=== PATIENT | male | born 1955 | race Caucasian/White ===

== ENCOUNTER 2025-04-18 12:31 | Day surgery (SDC) | payer MEDICARE, BC ==
[2025-04-14 13:29] LABS: MEAN PLATELET VOLUME 7.8 FL (7.4-10.4); RED CELL DISTRIBUTION WIDTH 14.8 % (11.5-14.5)
[2025-04-14 13:43] LABS: APTT 29 SECONDS (22-32); CHOL/HDL RATIO 4.4 (0.00-4.99); CREATININE 1.54 MG/DL (0.60-1.10); INR 1.2 INR; LDL CHOLESTEROL 125 MG/DL (50-100); TOTAL CARBON DIOXIDE 26.2 MMOL/L (24-32); eGFR 45 ML/MIN
[~2025-04-18] VITALS: Ht 177.8 cm; Wt 114.3 kg
[~2025-04-18 12:31] MED LIST: ASPI-1264 PO; NO HOME MEDS
[2025-04-18] MEDS ORDERED: METO-384 PO (12:49)
[2025-04-18] MEDS ORDERED: AMIO200T76 PO ×2 (12:49→12:52)
[2025-04-18] MEDS ORDERED: APIX5TAB3 PO (12:49)
[2025-04-18] MEDS ORDERED: normal saline 1000ml 1,000 ML IV SCH (12:55)
[2025-04-18] MEDS ORDERED: fentaNYL/PF 50MCG/1 ML 2ML syringe IV ONE (12:55)
[2025-04-18] MEDS ORDERED: MIDAZolam 1mg/ml 10ml vial IV ONE (12:55)
[2025-04-18] MEDS ORDERED: fentaNYL/PF 50MCG/1 ML 2ML syringe ONE (13:43)
[2025-04-18] MEDS ORDERED: amiodarone 50MG/ML inj IV ONE (13:43)
[2025-04-18] MEDS ORDERED: ondansetron/PF 4mg/2ml inj ONE (13:43)
[2025-04-18] MEDS ORDERED: midazolam 1 mg/ML 2ml injection ONE ×2 (13:43→15:24)
[2025-04-18] MEDS ORDERED: atropine 0.1mg/ml 10ml syringe ONE (13:44)
[2025-04-18 15:42] VITALS: RESP 15; O2SAT 97
--- NOTE | 2025-04-18 16:32 | ELECTROCARDIOGRAPH REPORT ---
[facility] Test Date: 2025-04-18 Test Time: 16:29:10 Pat Name: BEAU WARD Department: [facility] Patient ID: [facility]-[id number] Room: Gender: M Solar Consultant: : [id number] Requested By: KESHAV POOLE Order Number: [id number] Reading MD: Dr. YUNG De Santiago Measurements Intervals [place] Rate: 53 P: 64 HI: 171 QRS: 60 QRSD: 85 T: 35 QT: 463 QTc: 435 Interpretive Statements Sinus rhythm RSR' in V1 or V2, probably normal variant Minimal ST elevation, anterior leads Electronically Signed On 04-18-2025 17:35:[address] YUNG De Santiago Please click the below link to view image of tracing.
--- NOTE | 2025-04-18 16:37 | PROCEDURE NOTE CC ---
Procedure Note Providers to CC CC: PARTH POOLE MD ~ Description Planned Procedure Cardioversion Indications Symptomatic Atrial Fibrillation Post Operative Dx: Same Type of Anesthesia Moderate Sedation. Description It was confirmed that patient has been taking oral anticoagulation without interruption for at least 4 weeks. The appropriate time-out procedure was performed including proper identification of the patient, physician, procedure, documentation, and there were no safety issues identified. The patient participated actively in this. After sedation was achieved, the patient was placed in the supine position and hands free patches were placed on their chest in the AP-lateral position. 1 synchronized cardioversion was provided at 200 Joules with conversion to normal sinus rhythm. This was confirmed on EKG. Complication: None The patient tolerated the procedure well without complications. KESHAV POOLE MD Apr 18, 2025 16:37
[2025-04-18 16:50] VITALS: BP 105/41; PULSE 69; RESP 14; O2SAT 95
[2025-04-18 17:00] VITALS: BP 109/50; PULSE 68; RESP 15; O2SAT 94
== END 2025-04-18 17:20 | disposition home or self-care (01) ==
LOC: SSTAY O 12:31
PROVIDERS: ATTEND Student in an Organized Health Care Education/Training Program
DX: I48.91 Unspecified atrial fibrillation (principal); I50.9 Heart failure, unspecified; Z79.01 Long term (current) use of anticoagulants; Z79.899 Other long term (current) drug therapy
CPT/HCPCS: 36415; 80048; 80061; 85025; 85610; 85730; 92960; 93005; J2250; J2405; J3010; J7030; 99152; 99153; J0282; J0461